=== PATIENT | female | born 1960 | race Caucasian/White ===

== ENCOUNTER 2017-03-14 06:44 | Emergency (ER) | payer OTHER ==
[2017-03-14] MEDS ORDERED: IBUPROFEN 200 MG TAB PO ONE (07:08)
[2017-03-14 07:20] VITALS: TEMP 98.5
--- NOTE | 2017-03-14 07:20 | RAD ---
EXAM: Three view(s) of the left fingers. INDICATION: Pain. COMPARISON: None. FINDINGS: No acute fracture or dislocation. No large soft tissue swelling. IMPRESSION: 1. No acute fracture. Electronically signed by: Rohith Bradley MD 03/14/2017 7:19 AM CDT
--- NOTE | 2017-03-14 07:30 | ED.PDOC ---
History of Present Illness - General Chief Complaint: Upper Extremity Injury Stated Complaint: left forearm injury Time Seen by Provider: 03/14/17 07:01 Source: patient Exam Limitations: no limitations - History of Present Illness Initial Comments: fell at work and dislocated 4th digit left hand at the PIP joint. 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 no other injuries per pt. accidental fall. finger immediately reduced upon arrival with direct traction. obvious deformity of the PIP upon arrival. nvi distally. pt does not appear intoxicated. Occurred: this morning Pain - Upper Extremity: moderate: Hand, left Method of Injury: fell Improving Factors: immobilization Worsening Factors: movement Allergies/Adverse Reactions: Allergies Penicillin G Adverse Reaction (Verified 06/02/16 05:12) Tetanus Toxoid Adverse Reaction (Verified 06/02/16 05:12) Home Medications: Ambulatory Orders Ieutloifcggbd-Htdm-Fbpltqxwes [Fioricet] 1 ea PO Q8H PRN #21 tab 06/02/16 Cyclobenzaprine HCl [Flexeril] 5 mg PO TID PRN #30 tab 06/02/16 Ibuprofen [Motrin Tab] 600 mg PO PRN PRN 06/02/16 Lisinopril 20 mg PO DAILY 06/02/16 predniSONE [Prednisone] 20 mg PO DAILY #5 tab 06/02/16 Review of Systems - Review of Systems Constitutional: States: no symptoms reported EENTM: States: no symptoms reported Respiratory: States: no symptoms reported Cardiology: States: no symptoms reported Gastrointestinal/Abdominal: States: no symptoms reported Genitourinary: States: no symptoms reported Musculoskeletal: States: see HPI Skin: States: no symptoms reported Neurological: States: no symptoms reported Endocrine: States: no symptoms reported All other Systems: No Change from Baseline Past Medical History (General) - Patient Medical History Hx Stroke: No Hx Dementia: No Hx Asthma: No Hx of COPD: No Hx Cardiac Disorders: No Hx Congestive Heart Failure: No Hx Pacemaker: No Hx Hypertension: Yes Hx Thyroid Disease: No Hx Diabetes: No Hx Gastroesophageal Reflux: No Hx Renal Disease: No Hx Cancer: No Hx of HIV: No Hx Hepatitis C: No Hx MRSA: No - Vaccination History Hx Tetanus, Diphtheria Vaccination: No Hx Influenza Vaccination: No Hx Pneumococcal Vaccination: No - Social History Hx Tobacco Use: No Hx Chewing Tobacco Use: No Hx Alcohol Use: No Hx Substance Use: No Hx Substance Use Treatment: No Hx Depression: No Hx Physical Abuse: No Hx Emotional Abuse: No Hx Suspected Abuse: No - Female History Patient : No Family Medical History - Family History Mother Family History: Unknown Living Status: Unknown Physical Exam - Physical Exam General Appearance: Alert, Anxious, No apparent distress Eyes, Ears, Nose, Throat Exam: PERRL/EOMI, normal ENT inspection Neck: full range of motion, supple Cardiovascular/Respiratory: regular rate, rhythm, normal peripheral pulses, normal breath sounds, no respiratory distress Back Exam: normal inspection Shoulder Exam: normal inspection, non-tender, no evidence of injury, normal ROM Elbow/Forearm Exam: normal inspection, non-tender, no evidence of injury, normal ROM Wrist Exam: normal inspection, non-tender, no evidence of injury, normal ROM Hand Exam: deformity - if PIP 4th digit left hand Neuro/Tendon: normal sensation, responds to pain Mental Status: alert, oriented x 3 Skin Exam: normal color Comments: Vital Signs - 24 hr 03/14/17 07:00 Temperature 98.5 F Pulse Rate [ 84 RIGHT BRACHIAL] Respiratory 20 Rate Blood Pressure 187/88 [RIGHT BRACHIAL ] O2 Sat by Pulse 96 Oximetry Progress - Progress Progress: 03/14/17 07:31 pt here with dislocation of the the PIP joint 4th digit left hand due to fall at work. r/b explained and digit immediately reduce upon arrival with direct traction. ibuprofen/tylenol for pain as well as juan taping as needed. expect 1 month of discomfort. uds pending for workers comp. no clinical evidence of clinical intoxication. er warnings. follow up with pcp in 1 week. xrays show no fracture or residual disclocation. Departure - Departure Clinical Impression: Dislocation, finger closed Qualifiers: Encounter type: initial encounter Qualified Code(s): S63.259A - Unspecified dislocation of unspecified finger, initial encounter Disposition: Discharge to Home or Self Care Condition: Fair Departure Forms: ED Discharge - Pt. Copy, Patient Portal Self Enrollment Instructions: DI for Finger Dislocation Diet: regular diet Activity: increase activity as tolerated Home Medications: Ambulatory Orders Acxaemsccnkio-Fiah-Iwipnoudoe [Fioricet] 1 ea PO Q8H PRN #21 tab 06/02/16 Cyclobenzaprine HCl [Flexeril] 5 mg PO TID PRN #30 tab 06/02/16 Ibuprofen [Motrin Tab] 600 mg PO PRN PRN 06/02/16 Lisinopril 20 mg PO DAILY 06/02/16 predniSONE [Prednisone] 20 mg PO DAILY #5 tab 06/02/16 Additional Instructions: pt here with dislocation of the the PIP joint 4th digit left hand due to fall at work. digit immediately reduce upon arrival with direct traction. ibuprofen/ tylenol for pain as well as juan taping as needed. expect 1 month of discomfort. er warnings. follow up with pcp in 1 week. xrays show no fracture or residual disclocation.
[2017-03-14 07:58] VITALS: BP 180/90; O2SAT 95
== END 2017-03-14 07:50 | disposition home or self-care (01) ==
LOC: ER 06:44
DX: S63.275A Dislocation of unspecified interphalangeal joint of left ring finger, initial encounter (principal); I10 Essential (primary) hypertension; Z88.0 Allergy status to penicillin; Z88.7 Allergy status to serum and vaccine; W19.XXXA Unspecified fall, initial encounter; Y99.0 Civilian activity done for income or pay

== ENCOUNTER → 2017-06-19 | Outpatient (CLI) | payer OTHER | END | disposition home or self-care (01) | LOC: YCFC.O 10:56 | PROVIDERS: ATTEND Nurse Practitioner Family | DX: E78.2 Mixed hyperlipidemia (principal); Z13.29 Encounter for screening for other suspected endocrine disorder; I10 Essential (primary) hypertension ==

== ENCOUNTER 2017-06-24 07:16 | Emergency (ER) | payer OTHER ==
--- NOTE | 2017-06-24 07:32 | ED.PDOC ---
History of Present Illness - General Chief Complaint: Chest Pain/CA Stated Complaint: heart racing, nausea, jaw pain Time Seen by Provider: 06/24/17 07:32 Source: patient, RN notes reviewed Exam Limitations: no limitations - History of Present Illness Initial Comments: Jane Bryson 57 y/o female stated that felt nauseated 2 days ago and was seen by her md and was noted that she had elevated blood pressure and also had left earache abd arm pain as well as neck pain. This morning felt heart was racing but no chest pains.Denies tinnitus ,hearing loss. Timing/Duration: other - 3 days ago Severity: moderate Location: other - none Activities at Onset: none Prior Chest Pain/Cardiac Workup: no prior chest pain, no prior cardiac workup Worsening Factors: nothing Nitro Today/Relief: no nitro taken today Aspirin Treatment Today: 325 mg x 1, provided by ED Associated Symptoms: denies symptoms Allergies/Adverse Reactions: Allergies Penicillin G Adverse Reaction (Verified 06/24/17 07:35) Tetanus Toxoid Adverse Reaction (Verified 06/24/17 07:35) Home Medications: Ambulatory Orders Nzuctmxgdbwcc-Dlpf-Elmoixuldo [Fioricet] 1 ea PO Q8H PRN #21 tab 06/02/16 Cyclobenzaprine HCl [Flexeril] 5 mg PO TID PRN #30 tab 06/02/16 Ibuprofen [Motrin Tab] 600 mg PO PRN PRN 06/02/16 Lisinopril 20 mg PO DAILY 06/02/16 predniSONE [Prednisone] 20 mg PO DAILY #5 tab 06/02/16 Review of Systems - Review of Systems Constitutional: States: no symptoms reported EENTM: States: see HPI, ear pain Respiratory: States: no symptoms reported Cardiology: States: see HPI Gastrointestinal/Abdominal: States: no symptoms reported Musculoskeletal: States: no symptoms reported Skin: States: no symptoms reported Neurological: States: no symptoms reported Endocrine: States: no symptoms reported Hematologic/Lymphatic: States: no symptoms reported Past Medical History (General) - Patient Medical History Hx Stroke: No Hx Dementia: No Hx Asthma: No Hx of COPD: No Hx Cardiac Disorders: No Hx Congestive Heart Failure: No Hx Pacemaker: No Hx Hypertension: Yes Hx Thyroid Disease: No Hx Diabetes: No Hx Gastroesophageal Reflux: No Hx Renal Disease: No Hx Cancer: No Hx of HIV: No Hx Hepatitis C: No Hx MRSA: No Surgical History: other - D & C - Vaccination History Hx Tetanus, Diphtheria Vaccination: No Hx Influenza Vaccination: No Hx Pneumococcal Vaccination: No - Social History Hx Tobacco Use: No Hx Chewing Tobacco Use: No Hx Alcohol Use: No Hx Substance Use: No Hx Substance Use Treatment: No Hx Depression: No Hx Physical Abuse: No Hx Emotional Abuse: No Hx Suspected Abuse: No - Female History Patient is a Female of Child Bearing Age (10 -59 yrs old): Yes Patient : No Family Medical History - Family History Mother Family History: Unknown Living Status: Unknown Hx Cardiac Disease: Yes - mom Hx Family Diabetes: Yes - mom Hx Family Cancer: Yes - breast-mom Physical Exam - Physical Exam General Appearance: Alert, Comfortable, No apparent distress Eyes, Ears, Nose, Throat Exam: PERRL/EOMI, normal ENT inspection, TMs normal, pharynx normal Neck: non-tender, full range of motion, normal inspection Respiratory: chest non-tender, lungs clear, normal breath sounds, no respiratory distress Cardiovascular/Chest: normal peripheral pulses, no edema, no gallop, no murmur Peripheral Pulses: radial,right: 1+, radial,left: 1+ Gastrointestinal/Abdominal: normal bowel sounds, non tender, soft, no organomegaly Extremity: normal range of motion, non-tender Neurologic: no motor/sensory deficits, alert, oriented x 3 Skin Exam: normal color, warm/dry Lymphatic: no adenopathy Progress - Progress Progress: 06/24/17 11:41 Vital Signs - 8 hr 06/24/17 06/24/17 06/24/17 07:20 09:14 10:27 Temperature 97.8 F 97.7 F Pulse Rate [ 80 78 77 pulse ox] Respiratory 18 16 20 Rate Blood Pressure 149/79 129/64 126/66 [Left Arm] O2 Sat by Pulse 97 96 99 Oximetry 06/24/17 10:55 Temperature Pulse Rate [ 84 pulse ox] Respiratory 22 Rate Blood Pressure 171/72 [Left Arm] O2 Sat by Pulse 98 Oximetry - Results/Orders Results/Orders: 06/24/17 10:43 URINE CULTURE W/COLONY COUNT Stat Laboratory Results - last 24 hr 06/24/17 06/24/17 06/24/17 08:00 08:00 08:25 WBC 8.1 RBC 4.32 Hgb 13.0 Hct 39.0 MCV 90.3 MCH 30.0 MCHC 33.3 RDW 13.7 Plt Count 213 MPV 9.1 Absolute Neuts (auto) 6.50 Absolute Lymphs (auto) 1.00 Absolute Monos (auto) 0.40 Absolute Eos (auto) 0.00 Absolute Basos (auto) 0.10 Neutrophils % 80.8 H Lymphocytes % 12.7 L Monocytes % 5.6 Eosinophils % 0.1 L Basophils % 0.8 D-Dimer, Quantitative < 200 Total Bilirubin 0.8 Direct Bilirubin 0.1 Indirect Bilirubin 0.7 AST 15 ALT 12 Alkaline Phosphatase 92 Creatine Kinase 43 CK-MB (CK-2) 1.6 CK-MB (CK-2) % Not Reportable Troponin I < 0.02 Serum Total Protein 7.6 Albumin 4.2 TSH 1.19 Urine Color Urine Appearance Urine pH Ur Specific [place] Urine Protein Urine Glucose (UA) Urine Ketones Urine Blood Urine Nitrite Urine Bilirubin Urine Urobilinogen Ur Leukocyte Esterase Urine RBC Urine WBC Ur Epithelial Cells Urine Bacteria Urine Opiates Screen Urine Barbiturates Ur Phencyclidine Scrn U Amphetamin/Meth Scrn U Benzodiazepines Scrn U Cocaine Metab Screen U Cannabinoids Screen 06/24/17 06/24/17 06/24/17 10:30 10:43 10:55 WBC RBC Hgb Hct MCV MCH MCHC RDW Plt Count MPV Absolute Neuts (auto) Absolute Lymphs (auto) Absolute Monos (auto) Absolute Eos (auto) Absolute Basos (auto) Neutrophils % Lymphocytes % Monocytes % Eosinophils % Basophils % D-Dimer, Quantitative Total Bilirubin Direct Bilirubin Indirect Bilirubin AST ALT Alkaline Phosphatase Creatine Kinase CK-MB (CK-2) CK-MB (CK-2) % Troponin I < 0.02 Serum Total Protein Albumin TSH Urine Color Yellow Urine Appearance Sl cloudy Urine pH 7.5 Ur Specific [place] 1.015 Urine Protein Negative Urine Glucose (UA) Negative Urine Ketones Negative Urine Blood Moderate H Urine Nitrite Negative Urine Bilirubin Negative Urine Urobilinogen 0.2 Ur Leukocyte Esterase Small H Urine RBC 3-5 H Urine WBC Tntc H Ur Epithelial Cells 20-30 Urine Bacteria 4+ H Urine Opiates Screen Negative Urine Barbiturates Negative Ur Phencyclidine Scrn Negative U Amphetamin/Meth Scrn Negative U Benzodiazepines Scrn Negative U Cocaine Metab Screen Negative U Cannabinoids Screen Negative Has abnormal urinalysis patient asymptomatic will wait for c&s result - EKG/XRAY/CT EKG: Sinus, no ST T wave changes Comments: Herat rate-92; Departure - Departure Clinical Impression: Palpitations, Chest discomfort Time of Disposition: 11:41 Disposition: Discharge to Home or Self Care Condition: Good Departure Forms: ED Discharge - Pt. Copy, Patient Portal Self Enrollment Instructions: DI for Palpitations, DI for Atypical Chest Pain, DI for Chest Pain Referrals: Tamiko Carrillo NP [Primary Care Provider] - 1-2 Weeks Home Medications: Ambulatory Orders Kuwebwsobbbis-Dqic-Exxsnzstsd [Fioricet] 1 ea PO Q8H PRN #21 tab 06/02/16 Cyclobenzaprine HCl [Flexeril] 5 mg PO TID PRN #30 tab 06/02/16 Ibuprofen [Motrin Tab] 600 mg PO PRN PRN 06/02/16 Lisinopril 20 mg PO DAILY 06/02/16 predniSONE [Prednisone] 20 mg PO DAILY #5 tab 06/02/16 Additional Instructions: RETURN TO EMERGENCY ROOM NEEDED;FOLLOWUP WITH PRIMARY MD 06/25/2017 CALL FOR APPOINTMENT
[2017-06-24] MEDS ORDERED: ASPIRIN (CHEWABLE) 81 MG TAB PO ONE (07:35)
[2017-06-24 09:14] VITALS: TEMP 97.7
[2017-06-24 12:00] VITALS: BP 154/77; O2SAT 97
== END 2017-06-24 11:59 | disposition home or self-care (01) ==
LOC: ER 07:16
DX: R00.2 Palpitations (principal); R07.89 Other chest pain; I10 Essential (primary) hypertension; Z88.0 Allergy status to penicillin; Z88.7 Allergy status to serum and vaccine; Z79.899 Other long term (current) drug therapy

== ENCOUNTER → 2017-12-08 | Outpatient (CLI) | payer OTHER | END | disposition home or self-care (01) | LOC: YCFC.O 08:45 | PROVIDERS: ATTEND Nurse Practitioner Family | DX: R50.9 Fever, unspecified (principal) ==